=== PATIENT | male | born 1995 | race Caucasian/White ===

== ENCOUNTER 2020-12-03 11:50 | Emergency (ER) | payer BC ==
--- NOTE | 2020-12-03 12:13 | EDM.PDOC ---
<Jayme Wagoner Agata - Last Filed: 12/03/20 12:13> ED HPI GENERAL MEDICAL PROBLEM - General Chief Complaint: Lower Extremity Injury/Pain Stated Complaint: TWISTED LEFT LEG PLAYING BASKET BALL Time Seen by Provider: 12/03/20 12:08 Source of Information: Reports: Patient History Limitations: Reports: No Limitations - History of Present Illness INITIAL COMMENTS - FREE TEXT/NARRATIVE: 25 y/o M c/o L knee pain. Pt was playing basketball and jumped up in the air, upon landing pt came straight down on his knee and felt a pop. The hurts on the lateral side of the knee and is amplified when the pt tries to bear weight on his leg. At the present pt cannot bare weight. Denies other injury, cp, db, abd pn, pelvic pn, sob, loc, allergies. Onset: Today, Sudden Duration: Hour(s): Location: Reports: Lower Extremity, Left Quality: Reports: Sharp Severity: Mild Improves with: Reports: Rest Worsens with: Reports: Movement Left Knee Pain Score (Numeric/FACES): 6 - Related Data Allergies Allergy/AdvReac Type Severity Reaction Status Date / Time No Known Allergies Allergy Verified 12/03/20 11:57 Home Meds: Home Meds . [No Known Home Meds] 12/03/20 [History] Past Medical History HEENT History: Reports: None Cardiovascular History: Reports: None Respiratory History: Reports: None Gastrointestinal History: Reports: None Genitourinary History: Reports: None Musculoskeletal History: Reports: None Neurological History: Reports: None Psychiatric History: Reports: None Endocrine/Metabolic History: Reports: None Hematologic History: Reports: None Immunologic History: Reports: None Oncologic (Cancer) History: Reports: None Dermatologic History: Reports: None - Infectious Disease History Infectious Disease History: Reports: None - Past Surgical History Head Surgeries/Procedures: Reports: None Social & Family History - Family History Family Medical History: No Pertinent Family History - Tobacco Use Tobacco Use Status *Q: Never Tobacco User - Caffeine Use Caffeine Use: Reports: Coffee - Recreational Drug Use Recreational Drug Use: No Review of Systems - Review of Systems Review Of Systems: Comprehensive ROS is negative, except as noted in HPI. ED EXAM, GENERAL - Physical Exam Exam: See Below Respiratory/Chest: No Respiratory Distress, Lungs Clear, Normal Breath Sounds, No Accessory Muscle Use, Chest Non-Tender Cardiovascular: Normal Peripheral Pulses, Regular Rate, Rhythm, No Edema, No Gallop, No JVD, No Murmur, No Rub GI/Abdominal: Soft, Non-Tender (Male) Exam: Deferred Rectal (Males) Exam: Deferred Back Exam: Normal Inspection, Full Range of Motion Extremities: Other (no visible trauma, deformity, swelling bilaterally. Tenderness with posterior drawer test but no displacment. Lateral tenderness with knee placed at 90 degrees.) Course - Re-Assessments/Exams Free Text/Narrative Re-Assessment/Exam: 12/03/20 12:13 Advised pt on assessment and xray findings. Informed him to utilize knee immobilizer in 7-10 days for reevaluation. Departure - Departure Time of Disposition: 12:15 Disposition: Home, Self-Care 01 Condition: Fair Clinical Impression: Knee sprain Qualifiers: Encounter type: initial encounter Involved ligament of knee: unspecified ligament Laterality: left Qualified Code(s): S83.92XA - Sprain of unspecified site of left knee, initial encounter - Discharge Information *PRESCRIPTION DRUG MONITORING PROGRAM REVIEWED*: Not Applicable *COPY OF PRESCRIPTION DRUG MONITORING REPORT IN PATIENT CAESAR: Not Applicable Instructions: Crutch Use, Adult, [id number], Knee Sprain, Adult, [id number] Forms: ED Department Discharge Additional Instructions: Use tylenol and ibuprofen for pain as needed. Rest and ice your knee to reduce inflammation and support healing. Follow up with your primary care provider in 7-10 days for reevaluation. Sepsis Event Note (ED) - Evaluation Sepsis Screening Result: No Definite Risk <Goran Padilla - Last Filed: 12/03/20 12:24> Course - Vital Signs Last Recorded V/S: Last Vital Signs Temp 97.6 F 12/03/20 11:58 Pulse 152 H 12/03/20 11:58 Resp 18 12/03/20 11:58 BP 121/79 12/03/20 11:58 Pulse Ox 99 12/03/20 11:58 - Orders/Labs/Meds Orders: Active Orders 24 hr Category Date Time Status Immobilizer [RC] ASDIRECTED Care 12/03/20 12:18 Active Knee 3V Lt [CR] Urgent Exams 12/03/20 11:54 Taken - Re-Assessments/Exams Free Text/Narrative Re-Assessment/Exam: 12/03/20 12:24 I personally performed or re-performed the physical examination and medical decision making. I have verified all student documentation or findings, including history, physical exam and/or medical decision making. Sepsis Event Note (ED) - Focused Exam Vital Signs: Vital Signs Temp Pulse Resp BP Pulse Ox 12/03/20 11:58 97.6 F 152 H 18 121/79 99
--- NOTE | 2020-12-03 12:36 | CR ---
PROCEDURE INFORMATION: Exam: XR Left Knee Exam date and time: 12/03/2020 11:59 AM Age: 25 years old Clinical indication: Pain; Knee; Left; Additional info: Left knee pain TECHNIQUE: Imaging protocol: XR Left knee. Views: 3 views. COMPARISON: No relevant prior studies available. FINDINGS: Bones/joints: The multiple views of the left knee demonstrate no evidence for fracture. There is normal mineralization and alignment. Joint spaces are well preserved. Soft tissues: Normal. IMPRESSION: Normal appearance of the left knee.
== END 2020-12-03 12:33 | disposition home or self-care (01) ==
LOC: DL.ED 11:50
DX: S83.92XA Sprain of unspecified site of left knee, initial encounter (principal); X50.1XXA Overexertion from prolonged static or awkward postures, initial encounter; Y93.67 Activity, basketball
CPT/HCPCS: 73562-LT; 99282; 99283-25